=== PATIENT | female | born 1990 ===

== ENCOUNTER 2020-12-13 22:01 | Inpatient (IN) | payer BC ==
[~2020-12-13] VITALS: Ht 162.6 cm; Wt 76.4 kg
[~2020-12-13 22:01] MED LIST: IBUP800 PO; OXYACE5T PO; PROM25S PR; RXPROM25S PR; SILSUL1TC TOP
[2020-12-13 23:04] LABS: BASOPHILS ABSOLUTE AUTO 0.04 K/mm3 (0.00-0.23); BASOPHILS PERCENT AUTO 0 % (0-2); EOSINOPHILS ABSOLUTE AUTO 0.16 K/mm3 (0.00-0.68); EOSINOPHILS PERCENT AUTO 1 % (0-6); Hematocrit 35.5 % (33.0-51.0); Hemoglobin 12.4 g/dL (11.5-16.0); IMMATURE GRAN ABSOLUTE AUTO 0.07 K/mm3 (0.00-0.10); IMMATURE GRAN PERCENT AUTO 1 % (0-1); LYMPHOCYTES ABSOLUTE AUTO 2.48 K/mm3 (0.84-5.20); LYMPHOCYTES PERCENT AUTO 18 % (21-46); MONOCYTES ABSOLUTE AUTO 1.14 K/mm3 (0.16-1.47); MONOCYTES PERCENT AUTO 8 % (4-13); Mean Corpuscular HGB 29.8 pg (26.0-34.0); Mean Corpuscular HGB Conc 34.9 g/dL (31.5-36.5); Mean Corpuscular Volume 85 fL (80-100); Mean Platelet Volume 11.2 fL (9.1-12.4); NEUTROPHILS ABSOLUTE AUTO 10.15 K/mm3 (1.96-9.15); NEUTROPHILS PERCENT AUTO 72 % (41-73); Platelet Count 271 K/mm3 (150-400); RDW Standard Deviation 39.7 fL (35.1-46.3); Red Blood Cell Count 4.16 M/mm3 (3.80-5.20); White Blood Cell Count 14.04 K/mm3 (4.00-11.30)
[2020-12-13] MEDS ORDERED: Calcium Carbon500 MG PO (23:19)
[2020-12-13] MEDS ORDERED: PRENATAL TABLE1 EAC2 PO (23:19)
[2020-12-13 23:41] LABS: Influenza A, PCR NEGATIVE (NEGATIVE); Influenza B, PCR NEGATIVE (NEGATIVE); Resp Syncytial Virus, PCR NEGATIVE (NEGATIVE); SARS-Cov-2 (COVID-19) PCR, MMC NEGATIVE (NEGATIVE)
[2020-12-14 05:45] LABS: PO2 Cord - Arterial 16.9 mmHg (16-20); pH Cord - Arterial 7.29 (7.28-7.35)
[2020-12-14 05:47] LABS: PCO2 Cord - Venous 43.5 mmHg (40-50); PO2 Cord - Venous 28.4 mmHg (28-32); pH Umbilical Cord - Venous 7.37 (7.26-7.35)
--- NOTE | 2020-12-14 11:21 | NUR ---
REPT TO BEENA WELLS/NEENA WELLS
--- NOTE | 2020-12-14 21:48 | NUR ---
RÍOS DISCONTINUED AT 214
--- NOTE | 2020-12-15 01:10 | NUR ---
PT CALLS BECAUSE THE SUNNY BOX IS BUZZING AND KEEPING HER AWAKE. IT APPEARS THAT THE DRESSING HAS LOST IT'S SEAL ALONG THE BOTTOM EDGE IT IS OVER PUBIC HAIR. THE PT PREFERS TO HAVE THE SUNNY TAKEN OFF AND JUST HAVE THE STERI STRIPS SHE HAS HAD IN HER PREVIOUS C/S. DR. LANDIN IS CALLED FOR ORDER TO REMOVE DRESSING.
--- NOTE | 2020-12-15 01:48 | NUR ---
SUNNY DRESSING IS REMOVED AND SOME STERI STRIPS REPLACED. ICISION IS WNL.
[2020-12-15 06:22] LABS: BASOPHILS ABSOLUTE AUTO 0.06 K/mm3 (0.00-0.23); BASOPHILS PERCENT AUTO 0 % (0-2); EOSINOPHILS ABSOLUTE AUTO 0.18 K/mm3 (0.00-0.68); EOSINOPHILS PERCENT AUTO 1 % (0-6); Hematocrit 31.7 % (33.0-51.0); Hemoglobin 10.9 g/dL (11.5-16.0); IMMATURE GRAN ABSOLUTE AUTO 0.09 K/mm3 (0.00-0.10); IMMATURE GRAN PERCENT AUTO 1 % (0-1); LYMPHOCYTES ABSOLUTE AUTO 3.18 K/mm3 (0.84-5.20); LYMPHOCYTES PERCENT AUTO 20 % (21-46); MONOCYTES ABSOLUTE AUTO 0.98 K/mm3 (0.16-1.47); MONOCYTES PERCENT AUTO 6 % (4-13); Mean Corpuscular HGB 29.9 pg (26.0-34.0); Mean Corpuscular HGB Conc 34.4 g/dL (31.5-36.5); Mean Corpuscular Volume 87 fL (80-100); Mean Platelet Volume 11.2 fL (9.1-12.4); NEUTROPHILS ABSOLUTE AUTO 11.16 K/mm3 (1.96-9.15); NEUTROPHILS PERCENT AUTO 71 % (41-73); Platelet Count 223 K/mm3 (150-400); RDW Coefficient Variation 13.2 % (11.7-14.2); RDW Standard Deviation 40.7 fL (35.1-46.3); Red Blood Cell Count 3.65 M/mm3 (3.80-5.20); White Blood Cell Count 15.65 K/mm3 (4.00-11.30)
--- NOTE | 2020-12-15 10:56 | NUR ---
1020: PT UP OOB TO CHAIR. LETTY WELL. DECLINES SHOWER AT THIS TIME.
[2020-12-15] MEDS ORDERED: Percocet 5-3251 EACH PO (12:24)
[2020-12-15] MEDS ORDERED: DOCU100 PO (12:25)
[2020-12-15] MEDS ORDERED: IBUP800 PO (12:26)
--- NOTE | 2020-12-15 13:01 | NUR ---
PT R/T FROM [place] WITH HER SISTER THAT TOOK HER OVER IN A WHEELCHAIR. PT TEARFUL. STATES SHE JUST GOT WORD THAT THE FOB CANNOT BE ALLOWED INTO SEE HER DAUGHTER UP AT [facility] PER CSD. PT WANTING TO BE D/C NOW. DISCUSSED WITH PATIENT WHAT THAT WOULD ENTAIL AND WHAT HER PLAN WAS ON WHERE SHE WOULD STAY TONIGHT [facility] WOULD NOT PROVIDE OVERNIGHT LODGING FOR HER. SUGGESTED MAYBE TALKING TO HER DR ABOUT A D/C TOMORROW BUT THAT SHE WOULD NEED TO BE ABLE TO HANDLE SELF CARE, AMBULATE ON HER OWN, AND DR PLACE ORDER. PT ON THE PHONE WITH FOB. PT TO HER ROOM AND RN WILL FOLLOW UP WITH HER WHEN SHE IS OFF THE PHONE.
--- NOTE | 2020-12-15 14:01 | NUR ---
DISCHARGE INSTRUCTIONS DISCUSSED WITH PT. QUESTIONS AND CONCERNS WERE ANSWERED. PT DISCHARGED HOME.
== END 2020-12-15 13:55 | disposition home or self-care (01) | DRG 787 ==
LOC: OBS 22:01 → BC 22:01 → OBS 22:02 → BC 22:03
PROVIDERS: Advanced Practice Midwife; ADMIT Obstetrics & Gynecology
PROC: 10D00Z1 Extraction of Products of Conception, Low, Open Approach (ICD-10-PCS; principal; 2020-12-14 05:00)
DX: O34.211 Maternal care for low transverse scar from previous cesarean delivery (principal); O99.324 Drug use complicating childbirth; N85.8 Other specified noninflammatory disorders of uterus; Z20.822 Contact with and (suspected) exposure to COVID-19; Z3A.38 38 weeks gestation of pregnancy; Z37.0 Single live birth; F12.90 Cannabis use, unspecified, uncomplicated
CPT/HCPCS: 0241U; 36415; 59025; 82803; 85025; 86850; 86900; 86901; 99214; A9270; J0690; J1885; J2590; J2765; J3010; J7120